=== PATIENT | male | born 1955 | race Hispanic/Latino ===

== ENCOUNTER 2016-12-13 08:50 | Day surgery (SDC) | payer OTHER ==
[2016-12-13] MEDS ORDERED: Propofol 10 mg/ml Inj (20 ML) ONE ×2 (12:44)
[2016-12-13] MEDS ORDERED: Lactated Ringer's 1,000 ML IV ONE (13:30)
[2016-12-13 14:02] VITALS: O2SAT 100
[2016-12-13 14:28] VITALS: BP 131/89; PULSE 55; RESP 20; TEMP 97.3
== END 2016-12-13 14:28 | disposition home or self-care (01) ==
LOC: C.ENDO 08:50
PROVIDERS: ATTEND Internal Medicine Gastroenterology
DX: D12.5 Benign neoplasm of sigmoid colon (principal); D12.3 Benign neoplasm of transverse colon; K64.8 Other hemorrhoids
CPT/HCPCS: 45388; 88305; J2704; J7120